=== PATIENT | female | born 1955 | race Caucasian/White ===

== ENCOUNTER → 2018-06-14 08:12 | Outpatient (CLI) | payer OTHER, SELFPAY ==
--- NOTE | 2018-06-14 09:26 | PM.TREADMILL ---
Cardiac Stress Test Report Referral & Results Date Patient Seen: 06/14/18 Requesting provider: Viv Diane Indication: Chest pain Rest ECG: Unremarkable Procedure Note: Today following both written and verbal informed consent the patient was exercised according to a standard Clifton protocol patient went for a total of 6 min 43 sec achieving a maximum heart rate of 159 maximum systolic blood pressure of 200. This is approximately 7.0 METS. Exercise was terminated at this point because of inability of the patient to continue on targets having been met. Patient was also given Cardiolite through a previously started Hep-Lock IV by the nuclear station operator approximately 1 minute prior to the cessation of exercise. The no dysrhythmia Nonspecific ST-T segment changes particularly inferior leads that resolved quickly upon cessation of activity Functional aerobic impairment rated 0 on the active scale Impression: No evidence of ischemia based on usually ECG criteria Average to slightly better than average exercise capacity Perfusion imaging to be reported separately Please note: Actual ECG tracings can be found in the PACS system.
--- NOTE | 2018-06-14 09:29 | P.PCN_ITS ---
Cardiac Stress Test Report Referral & Results Date Patient Seen: 06/14/18 Requesting provider: Viv Diane Indication: Chest pain Rest ECG: Unremarkable Procedure Note: Today following both written and verbal informed consent the patient was exercised according to a standard Clifton protocol patient went for a total of 6 min 43 sec achieving a maximum heart rate of 159 maximum systolic blood pressure of 200. This is approximately 7.0 METS. Exercise was terminated at this point because of inability of the patient to continue on targets having been met. Patient was also given Cardiolite through a previously started Hep-Lock IV by the nuclear physician approximately 1 minute prior to the cessation of exercise. The no dysrhythmia Nonspecific ST-T segment changes particularly inferior leads that resolved quickly upon cessation of activity Functional aerobic impairment rated 0 on the active scale Impression: No evidence of ischemia based on usually ECG criteria Average to slightly better than average exercise capacity Perfusion imaging to be reported separately Please note: Actual ECG tracings can be found in the PACS system.
--- NOTE | 2018-06-16 15:15 | DI.NM.S_ITS ---
DATE OF SERVICE: 06/14/2018 ORDERING PROVIDER: TL Sosa PROCEDURE: Nuclear cardiac stress study. INDICATIONS: This is a 63-year-old female referred for symptoms of chest discomfort. STRESS TEST: This patient is exercised according to a regular Clifton protocol for a total of 6 minutes and 43 seconds. Functional aerobic impairment is zero. Patient stopped due to symptoms of fatigue without symptoms of chest discomfort. Baseline 12-lead EKG is within normal limits. Stress EKG shows nonspecific J-point depression and upsloping ST-segment depression in multiple leads. No diagnostic changes of ischemia noted. PROCEDURE: This patient received 24.6. mCi of technetium-99 Myoview for the stress portion of the examination and returned 06/15/2018 for the resting portion of the examination receiving an additional 25.9 mCi. FINDINGS: Raw Data: Raw data images show overall good image quality. No significant source of artifact or interference noted. Quantitative Gated SPECT Imaging: Gated images shows a normal size ventricle with an end-diastolic volume of 80 cc. Estimated ejection fraction 84% with no regional wall motion abnormalities. Quantitative Perfusion SPECT Imaging: Myocardial perfusion imaging shows a normal distribution of radioisotope throughout the myocardium on the stress and rest images. IMPRESSION: Normal nuclear cardiac stress study. This examination suggests a low likelihood for the presence of significant underlying obstructive coronary artery disease. Brandy Ibrahim - SWATI/mp/ doc#: [id number]/job#: [id number] dd: 06/16/2018 13:28:00 dt: 06/16/2018 15:00:00 DICTATING /COPIES TO: Wali Yost MD COPIES MNE: VAN
== END ==
PROVIDERS: Visit Provider Physician Assistant Medical
DX: R07.9 Chest pain, unspecified (principal)
CPT/HCPCS: 78452; 93016; 93017; 93018; A9502

== ENCOUNTER 2019-03-14 08:38 | Day surgery (SDC) | payer OTHER, SELFPAY ==
[2019-03-14] VITALS (7 sets, daily range): BP systolic 94–130; BP diastolic 57–81; PULSE 52–82; RESP 12–16; TEMP 36–36.8; O2SAT 95–97; BMI 25.0
--- NOTE | 2019-03-14 | PATH_ITS ---
[facility] Accession Number: [id number] . 01 Material submitted: . colon - COLON POLYP AT 25 CM . 02 Diagnosis: Colon at 25 cm, Polyp: Tubular adenoma. MRV/03/15/2019 . 02 Electronically signed: . Dave Haro MD, PhD, Pathologist NPI- [id number] . 01 Gross description: . COLON POLYP AT 25 CM: Received in formalin is 1 fragment(s) of garcia, soft tissue measuring 0.6 x 0.5 x 0.5 cm which is entirely submitted and submitted entirely in 1 cassette(s) /DMC /DMC . 02 Pathologist provided ICD-10: D12.6 . 02 CPT . 118178 Performed at: 01 [facility] [address] [id number] MD Robert Mesa MD Phone: [phone] Performed at: 02 [facility] [place] [address] [place], [place] [id number] MD Blanca Davenport MD Phone: [phone]
--- NOTE | 2019-03-14 10:02 | PM.HP.1 ---
History of Present Illness Date Patient Seen: 03/14/19 Time Patient Seen: 10:02 Chief complaint: [id number] SCREENING COLONOSCOPY Narrative: The patient is woman here for a colonoscopy. Last exam 10 years ago. Mother had colon cancer at age 88. Patient History Medical History Arthritis (Acute) Cancer of breast, female (Acute) Cancer of skin (Acute) GERD (gastroesophageal reflux disease) (Acute) Hyperlipemia (Acute) Surgical History H/O lumpectomy (Acute) Social History household members: spouse Family & Social History Social History: household members spouse Meds Home Medications Medication Instructions Recorded Confirmed Type aspirin 81 mg PO DAILY 03/14/19 03/14/19 History biotin 5,000 mcg PO DAILY 03/14/19 03/14/19 History calcium carbonate [Calcium 500] 500 mg PO DAILY 03/14/19 03/14/19 History cholecalciferol (vitamin D3) 2,000 unit PO DAILY 03/14/19 03/14/19 History [Vitamin D3] multivitamin 1 tab PO DAILY 03/14/19 03/14/19 History omega 0-biy-rat-fish oil [Fish Oil] 2 cap PO DAILY 03/14/19 03/14/19 History ranitidine HCl 150 mg PO DAILY 03/14/19 03/14/19 History simvastatin 20 mg PO QPM 03/14/19 03/14/19 History Allergies Allergy/AdvReac Type Severity Reaction Status Date / Time No Known Drug Allergies Allergy Verified 03/14/19 09:24 Review of Systems Review of Systems All systems reviewed & are unremarkable except as noted in HPI and below Eyes Comments: Wears glasses Musculoskeletal Comments: Arthritis Exam Vital Signs (past 8 hours): - 03/14/19 09:24 Temperature 97.7 F Pulse Rate 82 Respiratory Rate 14 Blood Pressure 130/81 Pulse Oximetry 97 Oxygen Delivery Method Room Air Narrative Exam Narrative: Pleasant cooperative patient no apparent distress. Lungs are clear to auscultation. No rales or rhonchi. Heart regular rate and rhythm no murmur gallop. Abdomen is soft nontender without mass. No obvious hernias. Patient is alert and oriented x3. Assessment & Plan Assessment & Plan narrative: The patient for a screening colonoscopy. I have discussed the procedure with them. Risks of bleeding, perforation which would necessitate major operation, failure to find remove all lesions, the potential tattoo were all discussed. All questions were answered. They wished to proceed.
--- NOTE | 2019-03-14 10:05 | PM.PREOP ---
Pre-operative Note Interval Note History & Physical reviewed/Exam performed by Physician: Yes Changes to H&P: No ASA Class (for procedural sedation): I
[2019-03-14] MEDS: MIDAZOLAM 5 MG/5 ML VIAL IV (10:08)
[2019-03-14] MEDS: fentaNYL 250 MCG/5 ML INJ IV (10:08)
[2019-03-14] MEDS: SODIUM CHLORIDE 0.9% 1,000 ML 200 ML IV (10:34)
--- NOTE | 2019-03-14 10:59 | PM.OP.ENDO ---
Operative Date/Time/Diagnoses Date of procedure: 03/14/19 Time of procedure: 10:59 Pre-op diagnosis: Screening exam. Last exam 10 years ago. Family history of colon cancer in her mother Post-op diagnosis: same (Diverticulosis. One large polyp at 25 cm from the anal verge.) Procedure & Clinicians Study performed: Colonoscopy with hot snare polypectomy Same procedure as scheduled: Yes Indications: Screening Surgeon: Jj Terrell Procedure Notes SCOAP/Timeout: Performed Procedure in detail: The patient was placed in the left lateral decubitus position and underwent IV sedation directed by the surgeon consisting of fentanyl and Versed. Digital exam was remarkable for external hemorrhoids. The scope was inserted and advanced through the rectum into the sigmoid, descending, transverse, and ascending colon. The patient's colon was quite tortuous. She had to be repositioned, stiffener inserted, pressure applied to in order to reach the cecum. The cecum was reached identified by the ileocecal valve and the appendiceal opening. The scope was gradually brought out. One large Polyp was found at 25 cm. The scope ultimately was retroflexed in the rectum. The appearance was remarkable for moderately size internal hemorrhoids without ulceration.. The scope was removed and the patient tolerated the procedure well. The prep was adequate. There was large amount of fluid in the colon which had to be sucked out. Scope withdrawal time: Total 15 minutes Sedation minutes: 51 Findings: diverticulosis and polyp Specimen(s): other (Polyp) Complications: none Recommendations: Colonscopy in 5 years Follow up: as needed Disposition: PACU
== END 2019-03-14 11:52 | disposition home or self-care (01) ==
LOC: ENDO 08:39
PROVIDERS: PCP Physician Assistant Medical; Visit Provider Specialist
PROC: 0DJD8ZZ Inspection of Lower Intestinal Tract, Via Natural or Artificial Opening Endoscopic (ICD-10-PCS; CPT 45378; principal; 2019-03-14 09:45)
DX: Z12.11 Encounter for screening for malignant neoplasm of colon (principal); D12.6 Benign neoplasm of colon, unspecified; K57.30 Diverticulosis of large intestine without perforation or abscess without bleeding; K64.8 Other hemorrhoids; K64.4 Residual hemorrhoidal skin tags; Z80.0 Family history of malignant neoplasm of digestive organs; K21.9 Gastro-esophageal reflux disease without esophagitis; E78.5 Hyperlipidemia, unspecified; Z85.3 Personal history of malignant neoplasm of breast; Z85.828 Personal history of other malignant neoplasm of skin
CPT/HCPCS: 45385; 99152; 99153; J2250; J3010

== ENCOUNTER → 2021-08-01 16:40 | Outpatient (CLI) | payer MEDICARE, OTHER, SELFPAY ==
--- NOTE | 2021-08-01 | DI.MRI.S_ITS ---
PROCEDURE: MR FEMUR RT WO CON INDICATIONS: EVAL FOR RIGHT INNER HAMSTRING TEAR TECHNIQUE: Noncontrast coronal and sagittal T1 spin echo and STIR; axial T1 spin echo and T2 fast spin echo with fat saturation through the right femur. COMPARISON: None. FINDINGS: Image quality: Excellent. Bones: The visualized bone marrow demonstrates normal signal on all sequences. The overlying cortex appears intact. No fractures lines or intra-osseous lesions. Soft tissues: Hamstring avulsion injury with retraction of semimembranosus by approximately 8 cm. Small amount of fluid signal along the semimembranosus fascia. Reticulated T2 hyperintense signal is seen biceps femoris musculotendinous junction and ischial tuberosity attachment, compatible with tendinopathy and partial tear. No soft tissue masses are present. IMPRESSION: Hamstring avulsion injury with retraction by approximately 8 cm as detailed above. Dictated by: Kamari Dubose M.D. on 08/04/2021 at 9:02 Approved by: Kamari Dubose M.D. on 08/04/2021 at 9:10
== END ==
PROVIDERS: PCP Physician Assistant Medical; Referring Provider Physician Assistant Medical; Visit Provider Physician Assistant Medical
DX: S76.391A Other specified injury of muscle, fascia and tendon of the posterior muscle group at thigh level, right thigh, initial encounter (principal)
CPT/HCPCS: 73718

== ENCOUNTER 2023-12-29 19:31 | Emergency (ER) | payer MEDICARE, OTHER, SELFPAY ==
[2023-12-29 19:38] VITALS: BP 140/67; PULSE 62; RESP 20; TEMP 36.8; O2SAT 99; BMI 28.1
--- NOTE | 2023-12-29 20:25 | ED.WOUNDLAC ---
HPI - Wound/Laceration General Chief Complaint: Wound/Laceration Stated Complaint: cut tip off rt index finger Time Seen by Provider: 12/29/23 20:22 Source: patient Mode of arrival: Ambulatory History of Present Illness HPI narrative: Patient is a 68-year-old female who cut the tip her right index finger off on a mandolin kitchen utensil. Related Data Home Medications Medication Instructions Recorded Confirmed aspirin 81 mg chewable tablet 81 mg PO DAILY 03/14/19 03/14/19 biotin 5,000 mcg disintegrating 5,000 mcg PO DAILY 03/14/19 03/14/19 tablet calcium carbonate (Calcium 500) 500 mg PO DAILY 03/14/19 03/14/19 cholecalciferol (vitamin D3) 50 2,000 unit PO DAILY 03/14/19 03/14/19 mcg (2,000 unit) capsule (Vitamin D3) multivitamin 1 tab PO DAILY 03/14/19 03/14/19 omega 6-adz-xwt-fish oil 1,000 mg 2 cap PO DAILY 03/14/19 03/14/19 (120 mg-180 mg) capsule (Fish Oil) ranitidine HCl 150 mg tablet 150 mg PO DAILY 03/14/19 03/14/19 simvastatin 20 mg tablet 20 mg PO QPM 03/14/19 03/14/19 Allergies Allergy/AdvReac Type Severity Reaction Status Date / Time No Known Drug Allergies Allergy Verified 03/14/19 09:24 Review of Systems Musculoskeletal Musculoskeletal: Reports system reviewed and no additional complaints, except as documented Integumentary/Breasts Skin/Breast: Reports system reviewed and no additional complaints, except as documented Neurologic Neurologic: Reports system reviewed and no additional complaints, except as documented Patient History Medical History Cancer of skin Cancer of breast, female GERD (gastroesophageal reflux disease) Arthritis Hyperlipemia Surgical History H/O lumpectomy Social History household members: spouse Smoking Status: Never smoker Smoking Status: Never smoker Substance Use Type: does not use Exam Initial Vital Signs Initial Vital Signs: Vital Signs Temperature 98.2 F 12/29/23 19:38 Pulse Rate 62 12/29/23 19:38 Respiratory Rate 20 12/29/23 19:38 Blood Pressure 140/67 12/29/23 19:38 Pulse Oximetry 99 12/29/23 19:38 Oxygen Delivery Method Room Air 12/29/23 19:38 Skin Other: Soft tissue skin amputation very distal aspect of the right index finger. Extrem Other: Distal amputation index finger without nail bed involvement. Course Vital Signs Vital signs: Vital Signs - 8 hr 12/29/23 21:10 Temperature 98.5 F Pulse Rate 64 Respiratory Rate 16 Blood Pressure 139/63 Pulse Oximetry 97 Oxygen Delivery Method Room Air MDM - Wound/Laceration MDM Narrative Medical decision making narrative: This was a superficial wound. Not amenable to suturing here in the ER. There was no bony involvement. No nail bed involvement. Bleeding was controlled. Code with a bandage. Patient was given care instructions and return precautions. She expressed understanding and agreement with plan. Discharge Plan Departure Patient Disposition: Home Clinical Impression: Avulsion of skin Instructions: DI for Avulsion Laceration (Not Requiring Sutures) Activity Restrictions/Additional Instructions: Change the bandage that was placed today in 24 hours. Once the gauze that was placed to help it stop bleeding falls off you can wash your hands with soap and water. Keep it covered with a bandage after that and use topical antibiotic ointment. Return to the emergency department for new symptoms. Prescriptions: No Action simvastatin 20 mg Tablet 20 mg PO QPM multivitamin Tablet 1 tab PO DAILY calcium carbonate [Calcium 500] 500 mg calcium (1,250 mg) Tablet 500 mg PO DAILY ranitidine HCl 150 mg Tablet 150 mg PO DAILY aspirin 81 mg Tablet,Chewable 81 mg PO DAILY cholecalciferol (vitamin D3) [Vitamin D3] 2,000 unit Capsule 2,000 unit PO DAILY omega 0-yhd-snc-fish oil [Fish Oil] 1,000 mg (120 mg-180 mg) Capsule 2 cap PO DAILY biotin 5,000 mcg Tablet,Disintegrating 5,000 mcg PO DAILY Referrals: Viv Diane PA-C [Primary Care Provider] - Stand Alone Forms: Patient Portal/API
[2023-12-29 21:10] VITALS: BP 139/63; PULSE 64; RESP 16; TEMP 36.9; O2SAT 97
--- NOTE | 2023-12-29 21:12 | PC.NURSE ---
Dressing applied by Dr Munoz after hemostasis was achieved.
== END 2023-12-29 21:13 | disposition home or self-care (01) ==
PROVIDERS: Emergency Provider Emergency Medicine; PCP Physician Assistant Medical
DX: S61.210A Laceration without foreign body of right index finger without damage to nail, initial encounter (principal); W26.0XXA Contact with knife, initial encounter
CPT/HCPCS: 99281; 99283

== ENCOUNTER 2024-08-29 09:41 | Day surgery (SDC) | payer MEDICARE, OTHER, SELFPAY ==
[2024-08-29] MEDS: LACTATED RINGERS 1,000 ML 42 ML IV (10:24)
[2024-08-29 10:29] VITALS: BP 160/80; PULSE 79; RESP 16; TEMP 36.5; O2SAT 98
--- NOTE | 2024-08-29 10:53 | P.HP_ITS ---
History of Present Illness History of Present Illness Date Patient Seen: 08/29/24 Time Patient Seen: 10:53 Date of Onset of Symptoms: 08/29/24 Chief complaint: Screening Colonoscopy Narrative: 69-year-old white female, previous colonoscopy with a small, benign polypectomy 5 years ago. Presents for screening. [facility] Medical History (Updated 08/29/24 @ 10:54 by Justin Alvarez MD) Personal history of colonic polyps Cancer of skin Cancer of breast, female GERD (gastroesophageal reflux disease) Arthritis Hyperlipemia Surgical History H/O lumpectomy Social History household members: spouse Smoking Status: Never smoker alcohol intake: never Meds Home Medications and Allergies Home Medications Medication Instructions Recorded Confirmed Type biotin 5,000 mcg disintegrating 5,000 mcg PO DAILY 03/14/19 08/29/24 History tablet calcium carbonate (Calcium 500) 500 mg PO DAILY 03/14/19 03/14/19 History cholecalciferol (vitamin D3) 50 2,000 unit PO DAILY 03/14/19 08/29/24 History mcg (2,000 unit) capsule (Vitamin D3) multivitamin 1 tab PO DAILY 03/14/19 08/29/24 History omega 6-ksa-vha-fish oil 1,000 mg 2 cap PO DAILY 03/14/19 08/29/24 History (120 mg-180 mg) capsule (Fish Oil) sodium,potassium,mag sulfates 17.5 See Rx Instructions PO .COMPLEX 05/16/24 Rx gram-3.13 gram-1.6 gram oral soln #354 mL (Suprep Bowel Prep Kit) atorvastatin 20 mg tablet 20 mg PO DAILY 08/29/24 08/29/24 History famotidine 20 mg tablet 20 mg PO DAILY 08/29/24 08/29/24 History Allergies Allergy/AdvReac Type Severity Reaction Status Date / Time No Known Drug Allergies Allergy Verified 08/29/24 10:26 Review of Systems Review of Systems ROS: Yes All systems reviewed with the patient and are negative except as otherwise documented Exam Vital Signs (past 8 hours): - 08/29/24 10:29 Temperature 97.7 F Pulse Rate 79 Respiratory Rate 16 Blood Pressure 160/80 H Pulse Oximetry 98 Oxygen Delivery Method Room Air Oxygen Delivery Method Room Air Narrative Exam Narrative: Gen: NAD, sitting comfortably in bed, appears well HEENT: Sclera are anicteric, head is normocephalic and atraumatic, trachea is midline. CV: RRR, no JVD Resp: clear to auscultation bilaterally, equal chest wall movement bilaterally Abd: soft, nontender, normoactive bowel sounds Ext: no edema, full range of motion Neuro: Cranial nerves II-XII grossly intact, no focal deficits Skin: No erythema or ecchymosis Assessment & Plan Assessment and plan (1) Personal history of colonic polyps: Status: Acute Assessment & Plan narrative: Patient presents for colonoscopy Risks, benefits, alternatives to colonoscopy explained, including but not limited to bowel perforation or other serious complication requiring surgery at less than 1 in 5000 colonoscopies, abdominal pain, cramping or bleeding and less than 1% of colonoscopies, and the chances that we find a diagnosis that would require further intervention of about 2%. Patient agrees to proceed. Time-Based Coding :: [TOTAL MINUTES] spent with patient and on the chart (including review of chart, obtaining history, exam, reviewing outside data, placing orders, documenting exam and treatment plan, and counseling patient) on [DATE]. PROFEE Building Code Administrator Document charge(s): No
--- NOTE | 2024-08-29 11:27 | P.OP.COLON_ITS ---
Operative Date/Time/Diagnoses Date of procedure: 08/29/24 Time of procedure: 11:27 Pre-op diagnosis: Colon screening Post-op diagnosis: same Procedure & Clinicians Study performed: Colonoscopy Same procedure as scheduled: Yes Indications: Colon screening Surgeon: Justin Alvarez Procedure Notes SCOAP/Timeout: Performed Procedure in detail: Time-out was performed. Mac was induced. Patient was placed in left lateral d ecubitus position. The perineum was inspected without any gross abnormality. Lubricated pediatric colonoscope was inserted and advanced to the cecum. The terminal ileum was intubated. The colonoscope was withdrawn slowly inspecting the circumference of the colon. Very small polyps may have been missed, prep quality was adequate. Retroflexed view of the rectum showed small, non prolapsed nonbleeding internal hemorrhoids. The scope was withdrawn the patient was taken to PACU in good condition. Scope withdrawal time: 7 Sedation minutes: 19 Findings: divertiulosis Specimen(s): none sent Complications: none Post-procedure Recommendations: Colonoscopy in 10 years Follow up: as needed Disposition: PACU
[2024-08-29 11:30] VITALS: BP 95/39; PULSE 69; RESP 16; TEMP 36.4; O2SAT 96
[2024-08-29 11:35] VITALS: BP 128/54; PULSE 73; RESP 14; O2SAT 95
[2024-08-29 11:46] VITALS: BP 124/72; PULSE 62; RESP 15; O2SAT 96
== END 2024-08-29 11:53 | disposition home or self-care (01) ==
PROVIDERS: PCP Physician Assistant Medical; Referring Provider Surgery; Visit Provider Surgery
PROC: 0DJD8ZZ Inspection of Lower Intestinal Tract, Via Natural or Artificial Opening Endoscopic (ICD-10-PCS; CPT 45378; principal; 2024-08-29 10:45)
DX: Z12.11 Encounter for screening for malignant neoplasm of colon (principal); Z86.0100 Personal history of colon polyps, unspecified; K64.8 Other hemorrhoids
CPT/HCPCS: G0105; J2704

== ENCOUNTER → 2024-12-07 10:28 | Outpatient (CLI) | payer MEDICARE, OTHER, SELFPAY ==
--- NOTE | 2024-12-07 10:32 | DI.RAD.S_ITS ---
PROCEDURE: XR RIBS BI 3V INDICATIONS: RIB PAIN TECHNIQUE: 2 views of the ribs were acquired. COMPARISON: None. FINDINGS: Surgical changes and devices: None. Bones and chest wall: No fractures or dislocations. No suspicious bony lesions. Overlying soft tissues appear unremarkable. Lungs and pleura: The visualized lung appears clear. No pleural effusions or pneumothorax are visible. IMPRESSION: No displaced rib fracture. No suspicious bone lesion. Dictated by: Kianna Castillo M.D. on 12/07/2024 at 11:33 Approved by: Kianna Castillo M.D. on 12/07/2024 at 11:34
--- NOTE | 2024-12-07 10:50 | DI.RAD.S_ITS ---
PROCEDURE: XR SKULL<4V INDICATIONS: CONGENITAL ABNORMALITY OF SKULL. Please evaluate for bony metastasis TECHNIQUE: 2 view(s) of the skull acquired. COMPARISON: [facility], CR, XR RIBS BI 3V, 12/07/2024, 10:31. FINDINGS: Bones: No fractures. No suspicious bony lesions. Visualized sinuses appear clear. Soft tissues: No soft tissue calcifications. No suspicious soft tissue densities. IMPRESSION: To the limits of plain film, no findings of bony metastasis can be seen. Dictated by: Tien Garcia M.D. on 12/07/2024 at 11:07 Approved by: Tien Garcia M.D. on 12/07/2024 at 11:08
== END ==
PROVIDERS: PCP Physician Assistant Medical; Referring Provider Physician Assistant Medical; Visit Provider Physician Assistant Medical
DX: R07.81 Pleurodynia (principal); C50.911 Malignant neoplasm of unspecified site of right female breast; Q75.9 Congenital malformation of skull and face bones, unspecified
CPT/HCPCS: 70250; 71110

== ENCOUNTER → 2025-01-10 14:00 | Outpatient (CLI) | payer MEDICARE, OTHER, SELFPAY ==
--- NOTE | 2025-01-10 14:02 | DI.RAD.S_ITS ---
PROCEDURE: XR DEXA AXIAL SKELETON INDICATIONS: Osteopenia COMPARISON: None. FINDINGS: Lumbar Spine: Bone mineral density 1.008 g/cm2, T score -0.6, normal. Left Femoral Neck: Bone mineral density 0.658 g/cm2, T score -1.7. Left Hip: Bone mineral density is 0.755 g/cm2, T score -1.5, osteopenia. Fracture Risk Calculation (when applicable): 10-year fracture risk of a major osteoporotic fracture 11 percent and of a hip fracture 1.8 percent. (T score greater or equal to -1.0 to: NORMAL) (T score from -1.1 to -2.4: OSTEOPENIA) (T score less than or equal to -2.5: OSTEOPOROSIS) IMPRESSION: Osteopenia Follow-up guidelines as follows: Osteoporosis: Consider a repeat DEXA and Vertebral Fracture Assessment (VFA) exam in 2 years or sooner if medically necessary, to reassess this patient's status. Osteopenia: Consider a repeat DEXA in 2-3 years to reassess this patient's status, or if there is a new clinical indication. Normal: Consider a repeat DEXA in 5 years or sooner, or if there is a new clinical indication. All treatment decisions require clinical judgment and consideration of individual patient factors, including patient preferences, comorbidities, previous drug use, risk factors not captured in the FRAX model (e.g., frailty, falls, vitamin D deficiency, increased bone turnover, interval significant decline in bone density ) and possible under- or over-estimation of fracture risk by FRAX. In addition, the NOF Guide recommends that FDA-approved medical therapies be considered in postmenopausal women and men age >= 50 years with a: * Hip or vertebral (clinical or morphometric) fracture * T-score of <=-2.5 at the spine or hip * Ten-year fracture probability by FRAX of >= 3% for hip fracture or >=20% for major osteoporotic fracture. Approved by: Trino Ho M.D. on 01/11/2025 at 17:56
== END ==
LOC: RAD 14:01
PROVIDERS: PCP Physician Assistant Medical; Referring Provider Internal Medicine Hematology & Oncology; Visit Provider Internal Medicine Hematology & Oncology
DX: C50.411 Malignant neoplasm of upper-outer quadrant of right female breast (principal); M85.852 Other specified disorders of bone density and structure, left thigh; Z78.0 Asymptomatic menopausal state
CPT/HCPCS: 77080